=== PATIENT | female | born 1995 | race American Indian/Alaskan Native ===

== ENCOUNTER 2019-04-28 10:52 | Emergency (ER) | payer SELFPAY ==
--- NOTE | 2019-04-28 11:18 | Emergency Department Report ---
Blank Doc - Documentation Documentation: 24-year-old female that presents with vaginal itching and discharge. This initial assessment/diagnostic orders/clinical plan/treatment(s) is/are subject to change based on patient's health status, clinical progression and re- assessment by fellow clinical providers in the ED. Further treatment and workup at subsequent clinical providers discretion. Patient/guardians urged not to elope from the ED as their condition may be serious if not clinically assessed and managed. Initial orders include: 1- Patient sent to [facility] for further evaluation and treatment 2- UA 3- vaginal pelvic exam to be done
[2019-04-28 11:20] VITALS: BP 98/52
--- NOTE | 2019-04-28 12:05 | Emergency Department Report ---
ED Female HPI - General Chief complaint: Urogenital-Female Stated complaint: VAGINAL INFLAMMATION Time Seen by Provider: 04/28/19 11:17 Source: patient Mode of arrival: Ambulatory Limitations: No Limitations - History of Present Illness Initial comments: This is a 24-year-old after [place] female who presents to the emergency room with vaginal discharge hematuria for 1 week. Patient's last menstrual period was 04/12/2019, 0. Patient states she is currently receiving Depo- Provera control and not at risk of . Patient states she is risk of an STD. She denies urinary frequency, urgency, pelvic pain, or back pain. MD Complaint: vaginal discharge Onset/Timin -: week(s) Severity scale (0 -10): 2 Quality: burning Consistency: intermittent Improves with: none Worsens with: intercourse Are you Now?: No Last Menstrual Period: 04/12/19 EDC: 01/17/20 Associated Symptoms: vaginal discharge, dysuria, hematuria. denies: vaginal bleeding, abdominal pain, nausea/vomiting, fever/chills, rash, seizure - Related Data Sexually active: Yes : 0 Previous Rx's Medication Instructions Recorded Last Taken Type Fluconazole [Diflucan TAB] 150 mg PO DAILY #2 tablet 04/28/19 Unknown Rx metroNIDAZOLE [Flagyl TAB] 500 mg PO Q12HR #14 tab 04/28/19 Unknown Rx Allergies Allergy/AdvReac Type Severity Reaction Status Date / Time No Known Allergies Allergy Unverified 04/28/19 11:20 ED Review of Systems ROS: Stated complaint: VAGINAL INFLAMMATION Other details as noted in HPI Constitutional: denies: chills, fever Respiratory: denies: cough, shortness of breath, wheezing Cardiovascular: denies: chest pain, palpitations Gastrointestinal: denies: abdominal pain, nausea, diarrhea Genitourinary: dysuria, hematuria, discharge. denies: urgency Skin: denies: rash, lesions Neurological: denies: headache, weakness, paresthesias Psychiatric: denies: anxiety, depression ED Past Medical Hx - Social History Smoking Status: Never Smoker - Medications Home Medications: Home Medications Medication Instructions Recorded Confirmed Last Taken Type Fluconazole [Diflucan TAB] 150 mg PO DAILY #2 tablet 04/28/19 Unknown Rx metroNIDAZOLE [Flagyl TAB] 500 mg PO Q12HR #14 tab 04/28/19 Unknown Rx ED Physical Exam - General Limitations: No Limitations General appearance: alert, in no apparent distress - Respiratory Respiratory exam: Present: normal lung sounds bilaterally. Absent: respiratory distress - Cardiovascular Cardiovascular Exam: Present: regular rate, normal rhythm. Absent: systolic murmur, diastolic murmur, rubs, gallop - GI/Abdominal GI/Abdominal exam: Present: soft, normal bowel sounds. Absent: distended, tenderness, guarding, rebound, rigid - External exam: Present: normal external exam Speculum exam: Present: vaginal discharge (malodorous frothy greenish-yellow). Absent: vaginal bleeding, foreign body, tissue, laceration Bi-manual exam: Absent: cervical motion tendernes, adnexal tenderness, uterine enlargement - Back Exam Back exam: Absent: CVA tenderness (R), CVA tenderness (L) - Neurological Exam Neurological exam: Present: alert, oriented X3 - Psychiatric Psychiatric exam: Present: normal affect, normal mood - Skin Skin exam: Present: warm, dry, intact, normal color. Absent: rash ED Course Vital Signs 04/28/19 11:17 Temperature 98.4 F Pulse Rate 77 Respiratory 16 Rate Blood Pressure 98/52 O2 Sat by Pulse 100 Oximetry ED Medical Decision Making - Lab Data Lab Results 04/28/19 Range/Units Unknown Urine Color Yellow (Yellow) Urine Turbidity Clear (Clear) Urine pH 7.0 (5.0-7.0) Ur Specific Hiller 1.021 (1.003-1.030) Urine Protein <15 mg/dl (Negative) mg/dL Urine Glucose (UA) Neg (Negative) mg/dL Urine Ketones Neg (Negative) mg/dL Urine Blood Neg (Negative) Urine Nitrite Neg (Negative) Urine Bilirubin Neg (Negative) Urine Urobilinogen 4.0 (<2.0) mg/dL Ur Leukocyte Esterase Lg (Negative) Urine WBC (Auto) 9.0 H (0.0-6.0) /HPF Urine RBC (Auto) 18.0 (0.0-6.0) /HPF U Epithel Cells (Auto) 3.0 (0-13.0) /HPF Urine Mucus Few /HPF Urine HCG, Qual Negative (Negative) - Medical Decision Making Patient was examined by this provider. Vitals are stable and in no acute distress. UA, urine , wet prep, and gonorrhea and chlamydia was obtained. Wet prep positive for yeast, Trichomonas, and clue cells. Empirically treated with Rocephin 250 mg IM, metronidazole 2 g by mouth, and azithromycin 1 g by mouth. Negative motion tenderness, adnexal tenderness. I don't think this is PID. Start flagyl 500 mg po bid x 7 days and diflucan 150 mg po daily x 2 days. Discharged home in stable condition. Discussed prevention options. F/U with PCP or Health Department. Critical care attestation.: If time is entered above; I have spent that time in minutes in the direct care of this critically ill patient, excluding procedure time. ED Disposition Clinical Impression: Acute cervicitis, Bacterial vaginitis, Vulvovaginal candidiasis, Trichomonas vaginalis (TV) infection, STD exposure Disposition: TO HOME OR SELFCARE Is pt being admited?: No Condition: Stable Instructions: Cervicitis (ED), Bacterial Vaginosis (ED), Safe Sex (ED), Sexually Transmitted Diseases (ED) Additional Instructions: Avoid drinking alcohol while taking antibiotics and for 24 hours after completion. Continue safe sexual intercourse. Follow up with Primary Care Provider or health department. Prescriptions: Fluconazole [Diflucan TAB] 150 mg PO DAILY #2 tablet metroNIDAZOLE [Flagyl TAB] 500 mg PO Q12HR #14 tab Referrals: [facility],CARE...CANDIDO STEARNS [Other] - 3-5 Days [facility] [Outside] - 3-5 Days [facility] [Outside] - 3-5 Days [facility] [Outside] - 3-5 Days Forms: STI Treatment and Prevention Time of Disposition: 13:19
[2019-04-28 12:17] LABS: Bilirubin,Urine NEG (Negative); Blood,Urine NEG (Negative); Color,Urine Yellow (Yellow); HCG Qualitative,Urine Negative (Negative); Mucus,Urine FEW /HPF; Protein,Urine <15 mg/dL mg/dL (Negative)
[2019-04-28] MEDS ORDERED: ZITHROMAX PO ONE (13:19)
[2019-04-28] MEDS ORDERED: ROCEPHIN IM ONE (13:19)
[2019-04-28] MEDS ORDERED: XYLOCAINE 1% MPF 5 mL INFILTRATI ONE (13:19)
== END 2019-04-28 13:39 | disposition home or self-care (01) ==
LOC: ED 10:52
DX: N76.0 Acute vaginitis (principal); B96.89 Other specified bacterial agents as the cause of diseases classified elsewhere; Z20.2 Contact with and (suspected) exposure to infections with a predominantly sexual mode of transmission; Z79.899 Other long term (current) drug therapy
CPT/HCPCS: 81001; 81025; 87086; 87210; 87591; 96372; 99284; J0696